=== PATIENT | male | born 1990 | race Hispanic/Latino ===

== ENCOUNTER 2017-12-15 17:21 | Emergency (ER) | payer SELFPAY ==
[~2017-12-15] VITALS: Ht 152.4 cm; Wt 70.5 kg
[2017-12-15 17:47] LABS: HEMATOCRIT 49.2 % (39.0-50.0); HEMOGLOBIN 17.4 g/dl (14.0-18.0); IMMATURE GRANULOCYTES 1.4 % (0.0-5.0); MEAN CELL VOLUME 91.6 fL CALC (80.0-100.0); MEAN CORPUSCULAR HGB 32.4 pG CALC (26.0-32.0); MEAN CORPUSCULAR HGB CONC 35.4 g/L CALC (32.0-36.0); NEUT# 7.36 thou/uL (1.82-7.42); RED BLOOD COUNT 5.37 mill/uL (4.70-6.10); RED CELL DISTRI WIDTH 12.2 % (11.5-15.5)
[2017-12-15 18:36] LABS: ANION GAP 16 (6-22 (CALC)); BUN 6 mg/dL (9-20); BUN/CREATININE RATIO 9 (12-20 (CALC)); CARBON DIOXIDE 25 mmol/l (22-30); CHLORIDE 106 mmol/l (95-108); CREATININE 0.7 mg/dL (0.7-1.3); ETHYL ALCOHOL 145 mg/dl (0-30); GFR > 60 ML/MIN (>=60 (CALC)); GFR FOR AFR.AMER. > 60 ML/MIN (>=60 (CALC)); POTASSIUM 3.5 mmol/l (3.5-5.1); SODIUM 144 mmol/l (137-146)
[2017-12-15 19:25] LABS: URINE BILIRUBIN - DIPSTICK NEGATIVE (NEGATIVE); URINE BLOOD DIPSTICK NEGATIVE (NEGATIVE); URINE COLOR YELLOW; URINE GLUCOSE - DIPSTICK NEGATIVE (NEGATIVE); URINE KETONE NEGATIVE (NEGATIVE); URINE LEUK ESTERASE NEGATIVE (NEGATIVE); URINE NITRITE - DIPSTICK NEGATIVE (Negative); URINE PROTEIN - DIPSTICK NEGATIVE (NEG-TRACE); URINE SPECIFIC GRAVITY 1.015; URINE UROBILINOGEN - DIPSTICK 0.2 E.U./dL (0.2)
[2017-12-15 19:26] LABS: URINE CLARITY CLEAR
[2017-12-15 19:30] LABS: BARBITURATES NEGATIVE (NEGATIVE); COCAINE NEGATIVE (NEGATIVE); METHADONE NEGATIVE (NEGATIVE); OXCYCODONE NEGATIVE (NEGATIVE); TETRAHYDROCANNABIONOL NEGATIVE (NEGATIVE); TRICYLIC ANTIDEPRESSANTS NEGATIVE (NEGATIVE)
[2017-12-15 21:47] VITALS: BP 146/86
== END 2017-12-15 22:00 | disposition home or self-care (01) | DRG 313 ==
LOC: ED 17:21
PROVIDERS: Family Medicine
DX: R07.89 Other chest pain (principal); F10.10 Alcohol abuse, uncomplicated

== ENCOUNTER 2019-06-27 | Emergency (ER) | payer SELFPAY ==
[2019-06-27] MEDS ORDERED: BENADRYL 50MG C50 MG PO (19:01)
[2019-06-27] MEDS ORDERED: MEDDOSEPAK PO (19:01)
== END 2019-06-27 19:25 | disposition home or self-care (01) | DRG 607 ==
DX: L23.7 Allergic contact dermatitis due to plants, except food (principal)

== ENCOUNTER 2019-10-24 23:12 | Emergency (ER) | payer SELFPAY ==
[~2019-10-24] VITALS: Ht 152.4 cm; Wt 79.6 kg
[~2019-10-24 23:12] MED LIST: BENADRYL 50MG C50 MG PO; MEDDOSEPAK PO
[2019-10-25 00:19] LABS: ALBUMIN 4.7 g/dL (3.2-5.0); ALKALINE PHOSPHATASE 103 u/l (38-126); ANION GAP 17 (6-22 (CALC)); BILIRUBIN, TOTAL 0.4 mg/dL (0.0-1.4); BUN 10 mg/dL (9-20); BUN/CREATININE RATIO 13 (12-20 (CALC)); CARBON DIOXIDE 22 mmol/l (22-30); CHLORIDE 104 mmol/l (95-108); CREATININE 0.7 mg/dL (0.7-1.3); GFR > 60 ML/MIN (>=60 (CALC)); GFR FOR AFR.AMER. > 60 ML/MIN (>=60 (CALC)); SGOT/AST 89 u/l (17-59); SODIUM 139 mmol/l (137-146); TOTAL PROTEIN 8.2 g/dL (6.3-8.2)
[2019-10-25 00:25] LABS: HEMATOCRIT 47.9 % (39.0-50.0); HEMOGLOBIN 16.3 g/dl (14.0-18.0); IMMATURE GRANULOCYTES 1.3 % (0.0-5.0); MEAN CELL VOLUME 91.6 fL CALC (80.0-100.0); MEAN CORPUSCULAR HGB 31.2 pG CALC (26.0-32.0); NEUT# 5.36 thou/uL (1.82-7.42); RED BLOOD COUNT 5.23 mill/uL (4.70-6.10); RED CELL DISTRI WIDTH 12.2 % (11.5-15.5)
[2019-10-25 01:38] LABS: URINE BILIRUBIN - DIPSTICK NEGATIVE (NEGATIVE); URINE BLOOD DIPSTICK NEGATIVE (NEGATIVE); URINE COLOR YELLOW; URINE GLUCOSE - DIPSTICK NEGATIVE (NEGATIVE); URINE KETONE NEGATIVE (NEGATIVE); URINE LEUK ESTERASE NEGATIVE (NEGATIVE); URINE NITRITE - DIPSTICK NEGATIVE (Negative); URINE PH 5.5 (4.5-8.0); URINE PROTEIN - DIPSTICK NEGATIVE (NEG-TRACE); URINE SPECIFIC GRAVITY <=1.005; URINE UROBILINOGEN - DIPSTICK 0.2 E.U./dL (0.2)
[2019-10-25 02:15] VITALS: BP 124/66
== END 2019-10-25 02:15 | disposition home or self-care (01) | DRG 103 ==
LOC: ED 23:12
PROVIDERS: Emergency Medicine
DX: R51 Headache (principal); R22.0 Localized swelling, mass and lump, head

== ENCOUNTER 2020-07-31 22:44 | Emergency (ER) | payer SELFPAY ==
[~2020-07-31] VITALS: Ht 157.5 cm; Wt 76.0 kg
[2020-07-31 23:34] VITALS: BP 161/103
== END 2020-07-31 23:23 | disposition left against medical advice (07) | DRG 93 ==
LOC: ED 22:44
DX: R20.0 Anesthesia of skin (principal); F41.9 Anxiety disorder, unspecified; Z91.19 Patient's noncompliance with other medical treatment and regimen

== ENCOUNTER 2021-06-03 17:59 | Emergency (ER) | payer SELFPAY ==
[~2021-06-03] VITALS: Ht 157.5 cm; Wt 75.4 kg
[2021-06-03] VITALS (8 sets, daily range): BP systolic 139–157; BP diastolic 86–104
[2021-06-03] MEDS ORDERED: KEFLEX500 MG PO (18:50)
== END 2021-06-03 19:19 | disposition home or self-care (01) | DRG 607 ==
LOC: ED 17:59
DX: L60.0 Ingrowing nail (principal)

== ENCOUNTER 2021-06-29 19:29 | Emergency (ER) | payer SELFPAY ==
[~2021-06-29] VITALS: Ht 157.5 cm; Wt 77.0 kg
[~2021-06-29 19:29] MED LIST changes: +KEFLEX500 MG PO
[2021-06-29 20:18] LABS: URINE BILIRUBIN - DIPSTICK NEGATIVE (NEGATIVE); URINE BLOOD DIPSTICK TRACE-INTACT (NEGATIVE); URINE COLOR YELLOW; URINE GLUCOSE - DIPSTICK NEGATIVE (NEGATIVE); URINE KETONE NEGATIVE (NEGATIVE); URINE LEUK ESTERASE NEGATIVE (NEGATIVE); URINE PROTEIN - DIPSTICK 30 mg/dL (NEG-TRACE); URINE UROBILINOGEN - DIPSTICK 0.2 E.U./dL (0.2)
[2021-06-29 20:22] LABS: URINE NITRITE - DIPSTICK NEGATIVE (Negative)
[2021-06-29 20:27] LABS: URINE RBC 0-2 RBC/hpf (0-5)
[2021-06-29 20:31] LABS: HEMATOCRIT 46.8 % (39.0-50.0); HEMOGLOBIN 16.2 g/dl (14.0-18.0); IMMATURE GRANULOCYTES 0.8 % (0.0-5.0); MEAN CELL VOLUME 95.5 fL CALC (80.0-100.0); MEAN CORPUSCULAR HGB 33.1 pG CALC (26.0-32.0); MEAN CORPUSCULAR HGB CONC 34.6 g/dL CAL (32.0-36.0); NEUT# 4.76 thou/uL (1.82-7.42); RED BLOOD COUNT 4.9 mill/uL (4.70-6.10); RED CELL DISTRI WIDTH 12.2 % (11.5-15.5)
[2021-06-29 20:53] LABS: ALBUMIN 4.6 g/dL (3.2-5.0); ALKALINE PHOSPHATASE 116 u/l (38-126); ANION GAP 16 (6-22 (CALC)); BUN 13 mg/dL (9-20); BUN/CREATININE RATIO 15 (12-20 (CALC)); CARBON DIOXIDE 26 mmol/l (22-30); CHLORIDE 104 mmol/l (95-108); CREATININE 0.9 mg/dL (0.7-1.3); GFR > 60 ML/MIN (>=60 (CALC)); GFR FOR AFR.AMER. > 60 ML/MIN (>=60 (CALC)); POTASSIUM 3.9 mmol/l (3.5-5.1); SGOT/AST 78 u/l (17-59); SODIUM 142 mmol/l (137-146); TOTAL PROTEIN 8.3 g/dL (6.3-8.2)
[2021-06-29 20:54] LABS: BILIRUBIN, TOTAL 0.9 mg/dL (0.0-1.4)
[2021-06-29 21:05] LABS: MYOGLOBIN 33 ng/mL (0 - 121)
[2021-06-29 21:51] VITALS: BP 139/100
[2021-06-30] MEDS ORDERED: NAPROXEN500 MG PO (03:58)
== END 2021-06-29 22:03 | disposition home or self-care (01) | DRG 206 ==
LOC: ED 19:29
PROVIDERS: Emergency Medicine
DX: M94.0 Chondrocostal junction syndrome [Tietze] (principal); R74.8 Abnormal levels of other serum enzymes; Z20.822 Contact with and (suspected) exposure to COVID-19

== ENCOUNTER 2021-12-13 14:05 | Emergency (ER) | payer SELFPAY ==
[~2021-12-13] VITALS: Ht 157.5 cm; Wt 74.3 kg
[~2021-12-13 14:05] MED LIST changes: +NAPROXEN500 MG PO
[2021-12-13 14:14] VITALS: BP 118/77
[2021-12-13 14:31] VITALS: BP 119/74
[2021-12-13 14:47] LABS: HEMATOCRIT 41.7 % (39.0-50.0); IMMATURE GRANULOCYTES 1.5 % (0.0-5.0); MEAN CELL VOLUME 91.2 fL CALC (80.0-100.0); MEAN CORPUSCULAR HGB 31.1 pG CALC (26.0-32.0); MEAN CORPUSCULAR HGB CONC 34.1 g/dL CAL (32.0-36.0); NEUT# 7.39 thou/uL (1.82-7.42); RED BLOOD COUNT 4.57 mill/uL (4.70-6.10); RED CELL DISTRI WIDTH 12.5 % (11.5-15.5)
[2021-12-13 14:54] LABS: HEMOGLOBIN 14.2 g/dl (14.0-18.0)
[2021-12-13 15:00] VITALS: BP 118/70
[2021-12-13 15:00] LABS: ALBUMIN 4.1 g/dL (3.2-5.0); ALKALINE PHOSPHATASE 125 u/l (38-126); ANION GAP 15 (6-22 (CALC)); BUN 14 mg/dL (9-20); BUN/CREATININE RATIO 14 (12-20 (CALC)); CARBON DIOXIDE 25 mmol/l (22-30); CHLORIDE 104 mmol/l (95-108); GFR FOR AFR.AMER. > 60 ML/MIN (>=60 (CALC)); GFR OTHER RACES > 60 ML/MIN (>=60 (CALC)); SGOT/AST 26 u/l (17-59); SODIUM 139 mmol/l (137-146); TOTAL PROTEIN 7.6 g/dL (6.3-8.2)
[2021-12-13 15:02] LABS: BILIRUBIN, TOTAL 0.3 mg/dL (0.0-1.4)
[2021-12-13 15:30] VITALS: BP 116/69
[2021-12-13] MEDS ORDERED: NAPROXEN500 MG PO (15:54)
[2021-12-13] MEDS ORDERED: PREDNISONE10 MG PO (15:54)
[2021-12-13 16:00] VITALS: BP 121/73
[2021-12-13 16:22] VITALS: BP 121/73
== END 2021-12-13 16:26 | disposition home or self-care (01) | DRG 93 ==
LOC: ED 14:05
PROVIDERS: Nurse Practitioner
DX: R20.2 Paresthesia of skin (principal)

== ENCOUNTER 2022-04-19 15:27 | Emergency (ER) | payer SELFPAY ==
[~2022-04-19] VITALS: Ht 147.3 cm; Wt 81.0 kg
[2022-04-19] VITALS (8 sets, daily range): BP systolic 136–149; BP diastolic 77–98
[~2022-04-19 15:27] MED LIST changes: +PREDNISONE10 MG PO
[2022-04-19] MEDS ORDERED: TAM75CAP PO (17:32)
== END 2022-04-19 17:51 | disposition home or self-care (01) | DRG 195 ==
LOC: ED 15:27
DX: J10.1 Influenza due to other identified influenza virus with other respiratory manifestations (principal); Z20.822 Contact with and (suspected) exposure to COVID-19

== ENCOUNTER 2024-04-10 13:13 | Emergency (ER) | payer SELFPAY ==
[~2024-04-10] VITALS: Ht 152.4 cm; Wt 84.0 kg
[~2024-04-10 13:13] MED LIST changes: +CYCLOBENZAPRINE10 MG PO; +FLEXERIL5 M1 PO; +PREDNISONE50 MG PO; +TAM75CAP PO; +TRAMADOL HYDROC50 M1 PO
[2024-04-10 13:40] VITALS: BP 162/112
[2024-04-10 13:43] VITALS: BP 163/111
[2024-04-10 13:45] VITALS: BP 158/111
[2024-04-10] MEDS ORDERED: MECLIZINE HCL 25 MG/TAB PO ONE (13:50)
[2024-04-10 14:00] VITALS: BP 144/88
[2024-04-10 14:29] LABS: BASO% 0.2 % (0-3); EOS% 1.3 % (0-8); HEMATOCRIT 45.6 % (39.0-50.0); IMMATURE GRANULOCYTES 0.6 % (0.0-5.0); LYMPH% 21.7 % (15-41); MEAN CORPUSCULAR HGB CONC 35.1 g/dL CAL (32.0-36.0); NEUT# 7.53 thou/uL (1.82-7.42); NEUT% 68.2 % (42-76); RED BLOOD COUNT 4.85 mill/uL (4.70-6.10); RED CELL DISTRI WIDTH 11.9 % (11.5-15.5)
[2024-04-10 14:47] LABS: ALBUMIN 4.6 g/dL (3.2-5.0); CREATININE 0.9 mg/dL (0.7-1.3); POTASSIUM 3.9 mmol/l (3.5-5.1); TOTAL PROTEIN 8.2 g/dL (6.3-8.2)
[2024-04-10 14:49] LABS: BILIRUBIN, TOTAL 0.8 mg/dL (0.2-1.3)
[2024-04-10] MEDS ORDERED: DRAMAMINE25 M1 PO (15:37)
[2024-04-10 16:15] VITALS: BP 144/88
== END 2024-04-10 16:17 | disposition home or self-care (01) | DRG 149 ==
LOC: ED 13:13
PROVIDERS: Family Medicine
DX: R42 Dizziness and giddiness (principal); M54.2 Cervicalgia

== ENCOUNTER 2024-04-21 14:51 | Emergency (ER) | payer SELFPAY ==
[~2024-04-21] VITALS: Ht 152.4 cm; Wt 79.3 kg
[~2024-04-21 14:51] MED LIST changes: +DRAMAMINE25 M1 PO
[2024-04-21 15:17] VITALS: BP 160/93
[2024-04-21] MEDS ORDERED: KETOROLAC TROMETHAMINE 30 MG/ML SDV IM ONE (15:40)
[2024-04-21] MEDS ORDERED: METHOCARBAMOL500 MG PO (17:13)
[2024-04-21 17:15] VITALS: BP 160/93
== END 2024-04-21 17:25 | disposition home or self-care (01) | DRG 563 ==
LOC: ED 14:51
DX: S39.012A Strain of muscle, fascia and tendon of lower back, initial encounter (principal); X58.XXXA Exposure to other specified factors, initial encounter